=== PATIENT | male | born 1990 | race Caucasian/White ===

== ENCOUNTER 2016-09-20 07:11 | Emergency (ER) | payer OTHER ==
[2016-09-20] MEDS ORDERED: ONDANSETRON HCL INJ/PF 4 MG/2 ML SDV IV ONE (08:00)
[2016-09-20] MEDS ORDERED: KETOROLAC TROMETHAMINE INJ/PF 30 MG/1 ML SDV IV ONE (08:00)
[2016-09-20 08:33] LABS: ABSOLUTE BASOPHILS # (AUTO) 0.1 10^3/uL (0.0-0.2); ABSOLUTE EOSINOPHILS # (AUTO) 0.1 10^3/uL (0.0-0.6); ABSOLUTE LYMPHOCYTES (AUTO) 2.3 10^3/uL (0.5-4.7); ABSOLUTE MONOCYTES (AUTO) 0.9 10^3/uL (0.1-1.4); ABSOLUTE NEUT (AUTO) 7.3 10^3/uL (1.7-8.2); BASOPHILS % (AUTO) 0.6 % (0-2); EOSINOPHILS % (AUTO) 1.4 % (0-6); HEMATOCRIT 46.6 % (37.9-51.0); HEMOGLOBIN 16.3 g/dL (13.5-17.0); HGB HCT DIFFERENCE 2.3; LYMPHOCYTES % (AUTO) 21.2 % (13-45); MEAN CORPUSCULAR HGB CONC 35.1 g/dL (32.0-36.0); MEAN CORPUSCULAR VOLUME 86 fl (80-97); MONOCYTES % (AUTO) 8.8 % (3-13); RED BLOOD COUNT 5.45 10^6/uL (4.35-5.55); WHITE BLOOD COUNT 10.7 10^3/uL (4.0-10.5)
[2016-09-20 08:53] LABS: ALANINE AMINOTRANSFERASE 79 U/L (21-72); ALBUMIN 4.7 g/dL (3.5-5.0); ALKALINE PHOSPHATASE 88 U/L (38-126); ANION GAP 13 (5-19); ASPARTATE AMINO TRANSFERASE 34 U/L (17-59); BILIRUBIN,TOTAL 0.6 mg/dL (0.2-1.3); BLOOD UREA NITROGEN 11 mg/dL (7-20); CALCIUM 10.3 mg/dL (8.4-10.2); CARBON DIOXIDE 28 mmol/L (22-30); CHLORIDE 102 mmol/L (98-107); CREATININE RESULT 1.02 mg/dL (0.52-1.25); GLUCOSE 100 mg/dL (75-110); LIPASE 63.1 U/L (23-300); POTASSIUM 4.4 mmol/L (3.6-5.0); SODIUM 143.2 mmol/L (137-145)
[2016-09-20] MEDS ORDERED: LIDOCAINE 2% VISCOUS SOLN 20 ML UDCUP PO ONE (11:02)
[2016-09-20] MEDS ORDERED: ACETAMINOPHEN SOLN 325 MG/10.15 ML UDCUP PO ONE (11:02)
--- NOTE | 2016-09-20 11:12 | ER Document Report ---
HPI - HPI Patient complains to provider of: nausea, vomiting, sore throat Onset: This morning Onset/Duration: Gradual Quality of pain: Achy Pain Level: 5 Context: Patient reports sore throat with mild cough, nausea and vomiting that started this morning. Patient states he's vomited 5 times today. No diarrhea, no fever. Patient does report recent exposure to influenza in his household. Patient states he does not feel he has influenza as he has not been running a fever. Patient does complain of sore throat symptoms. Associated Symptoms: Nonproductive cough, Nausea, Vomiting, Sore throat. denies : Chest pain, Earache, Fever Exacerbated by: Denies Relieved by: Denies Similar symptoms previously: No Recently seen / treated by doctor: No - ROS ROS below otherwise negative: Yes Systems Reviewed and Negative: Yes All other systems reviewed and negative - CONSTITUTIONAL Constitutional: DENIES: Fever, Chills - EENT EENT: REPORTS: Sore Throat - NEURO Neurology: DENIES: Headache - RESPIRATORY Respiratory: REPORTS: Coughing. DENIES: Trouble Breathing - GASTROINTESTINAL Gastrointestinal: REPORTS: Nausea, Patient vomiting. DENIES: Diarrhea - MUSCULOSKELETAL Musculoskeletal: DENIES: Extremity pain, Back Pain, Neck Pain - DERM Skin Color: Normal, [place] Skin Problems: None Past Medical History - General Information source: Patient - Social History Smoking Status: Unknown if Ever Smoked Chew tobacco use (# tins/day): No Frequency of alcohol use: Occasional Drug Abuse: None Occupation: none Lives with: Family Family History: Reviewed & Not Pertinent Patient has suicidal ideation: No Patient has homicidal ideation: No Renal/ Medical History: Denies: Hx Peritoneal Dialysis GI Medical History: Reports: Hx Gastroesophageal Reflux Disease, Hx Irritable Bowel Musculoskeltal Medical History: Reports Hx Arthritis Past Surgical History: Reports: Hx Appendectomy Vertical Provider Document - CONSTITUTIONAL Agree With Documented VS: Yes Exam Limitations: No Limitations General Appearance: WD/WN, No Apparent Distress - INFECTION CONTROL TRAVEL OUTSIDE OF THE [place] IN LAST 30 DAYS: No - HEENT HEENT: Atraumatic, Normocephalic, Pharyngeal Tenderness, Pharyngeal Erythema. negative: Pharyngeal Exudate, Tympanic Membrane Red, Tympanic Membrane Bulging - NECK Neck: Normal Inspection, Supple. negative: Lymphadenopathy-Left, Lymphadenopathy-Right - RESPIRATORY Respiratory: Breath Sounds Normal, No Respiratory Distress, Chest Non-Tender O2 Sat by Pulse Oximetry: 95 - CARDIOVASCULAR Cardiovascular: Regular Rate, Regular Rhythm, No Murmur - GI/ABDOMEN Gastrointestinal: Abdomen Soft, Abdomen Non-Tender - BACK Back: Normal Inspection - MUSCULOSKELETAL/EXTREMETIES Musculoskeletal/Extremeties: EUGENE ROGERS - NEURO Level of Consciousness: Awake, Alert, Appropriate Motor/Sensory: No Motor Deficit - DERM Integumentary: Warm, Dry, No Rash Course - Re-evaluation Re-evalutation: 09/20/16 11:10 Patient reports throat discomfort has improved, speech is normal. Patient managing his oral secretions without difficulty as well as oral fluids. - Vital Signs Vital signs: Temp Pulse Resp BP Pulse Ox 97.7 F 85 16 141/100 H 95 09/20/16 07:15 09/20/16 07:15 09/20/16 07:15 09/20/16 07:15 09/20/16 07:15 - Laboratory Result Diagrams: 09/20/16 08:12 09/20/16 08:12 Laboratory results interpreted by me: 09/20/16 09/20/16 08:12 08:12 WBC 10.7 H Calcium 10.3 H ALT 79 H 09/20/16 11:08 Labs- Entire Visit 09/20/16 09/20/16 09/20/16 08:06 08:12 08:12 WBC 10.7 H RBC 5.45 Hgb 16.3 Hct 46.6 MCV 86 MCH 30.0 MCHC 35.1 RDW 13.0 Plt Count 215 Seg Neutrophils % 68.0 Lymphocytes % 21.2 Monocytes % 8.8 Eosinophils % 1.4 Basophils % 0.6 Absolute Neutrophils 7.3 Absolute Lymphocytes 2.3 Absolute Monocytes 0.9 Absolute Eosinophils 0.1 Absolute Basophils 0.1 Sodium 143.2 Potassium 4.4 Chloride 102 Carbon Dioxide 28 Anion Gap 13 BUN 11 Creatinine 1.02 Est GFR ( Amer) > 60 Est GFR (Non-Af Amer) > 60 Glucose 100 Calcium 10.3 H Total Bilirubin 0.6 Direct Bilirubin 0.0 AST 34 ALT 79 H Alkaline Phosphatase 88 Total Protein 8.0 Albumin 4.7 Lipase 63.1 Group A Strep Rapid NEGATIVE 09/20/16 18:46 - Diagnostic Test Radiology reviewed: Reports reviewed Discharge - Discharge Clinical Impression: Sore throat, Liver function test abnormality Upper respiratory infection Qualifiers: URI type: unspecified URI Qualified Code(s): J06.9 - Acute upper respiratory infection, unspecified Condition: Stable Disposition: HOME, SELF-CARE Instructions: Upper Respiratory Illness ([facility]), Oral Narcotic Medication ([facility]), Sore Throat ([facility]) Additional Instructions: Return immediately for any new or worsening symptoms Followup with your primary care provider, call tomorrow to make a followup appointment Your blood pressure was minimally elevated today, recheck with your primary doctor to have this reevaluated One of your liver function test was minimally elevated today. Your primary doctor can repeat this test in about a week. Throat culture is pending, we will call if you need any different treatment Take the Lortab or your tramadol, do not take both medications together. Prescriptions: Hydrocodone/Acetaminophen [Lortab 7.5-325 mg/15 ml Oral Soln] 10 ml PO Q6H PRN # 100 ml PRN Reason: Ondansetron HCl [Zofran 4 mg Tablet] 1 - 2 tab PO Q6 PRN #15 tablet PRN Reason: Forms: Elevated Blood Pressure Referrals: [facility] [Provider Group] - Follow up as needed
[2016-09-20 11:59] VITALS: BP 124/90
== END 2016-09-20 11:59 | disposition home or self-care (01) ==
LOC: ER 07:11
DX: J06.9 Acute upper respiratory infection, unspecified (principal); J02.9 Acute pharyngitis, unspecified; R11.2 Nausea with vomiting, unspecified; R05 Cough; R79.89 Other specified abnormal findings of blood chemistry; Z20.828 Contact with and (suspected) exposure to other viral communicable diseases; Z87.19 Personal history of other diseases of the digestive system; Z90.49 Acquired absence of other specified parts of digestive tract
CPT/HCPCS: 99285; 96374; 96375; 36415; 87070; 87880; 83690; 85025; 80053; 71020; 70360; J3490 ×2; J1885; J2405